=== PATIENT | male | born 1955 | race Caucasian/White ===

== ENCOUNTER → 2020-09-21 00:22 | Outpatient (CLI) | payer BC, SELFPAY ==
[2020-09-21 19:26] LABS: SARS-CoV-2 RNA PCR Negative
== END ==
PROVIDERS: PCP Family Medicine; Visit Provider Internal Medicine Gastroenterology
DX: Z01.812 Encounter for preprocedural laboratory examination (principal); Z20.822 Contact with and (suspected) exposure to COVID-19
CPT/HCPCS: C9803; U0003; U0005

== ENCOUNTER 2020-09-25 01:23 | Day surgery (SDC) | payer BC, SELFPAY ==
[2020-09-06 13:57] VITALS: BMI 25.6
[2020-09-25 06:40] VITALS: BP 109/75; PULSE 61; RESP 16; TEMP 35.9; O2SAT 99; BMI 26.0
[2020-09-25] MEDS: LACTATED RINGERS 1,000 ML 150 ML IV CONT (06:48)
--- NOTE | 2020-09-25 07:26 | WPDGICN ---
Assessment and Plan Assessment and plan (1) History of colon polyps: Code(s): Z86.010 - Personal history of colonic polyps Status: Acute Assessment and Plan: Patient has a history of colon polyps in 2008. Plan is for surveillance colonoscopy at this time. Further recommendations will be given after endoscopy. GI Consult Note Consult date/time: 09/25/20 07:26 HPI: Memo Garcia is a 64 year old male Presents for screening colonoscopy. Patient has a history of adenomatous colon polyps removed from the colon in 2008. Most recent exam in 2012 was unremarkable. Patient reports that current weight appetite bowel movements are normal. He denies abdominal pain. He has had no bleeding. Family history is noncontributory. Patient desires neoplasia screening follow-up this time. Review of Systems Review of Systems: All systems reviewed & are unremarkable except as noted in HPI and below PMFSH Past Medical History Medical History (Updated 09/25/20 @ 07:27 by Ildefonso Denny MD) GERD (gastroesophageal reflux disease) Hypertension Social History Social History Smokeless tobacco user: chewing tobacco Drinks per week: 7 Alcohol use details: BEER Substance use: current Substance use type: marijuana Living arrangements: with family Gender identity (if verbalized by the patient): Male Spiritual care concerns: No Meds Home Medications and Allergies Home Medications Medication Instructions Recorded Confirmed Type citalopram 20 mg PO DAILY 09/06/20 09/25/20 History lisinopril 20 mg PO DAILY 09/06/20 09/25/20 History omeprazole 20 mg PO DAILY 09/06/20 09/25/20 History Allergies Allergy/AdvReac Type Severity Reaction Status Date / Time No Known Allergies Allergy Verified 09/25/20 06:38 Vital Signs Vital Signs - 24 hr 09/25/20 06:40 Temperature 96.7 F L Pulse Rate 61 Respiratory Rate 16 Blood Pressure 109/75 Pulse Oximetry 99 Exam Narrative: Exam Narrative: Physical exam reveals patient be alert. Vital signs stable. HEENT exam is unremarkable. Patient is anicteric. Lungs are clear to auscultation and percussion. Heart is without murmur or extra sounds. Abdominal exam bowel sounds are present soft nontender with no organomegaly. Digital external rectal exam is normal.
--- NOTE | 2020-09-25 07:29 | WPDANESEPPF ---
Anes - Initial Pre Proc Eval Procedure: Operation Date: 09/25/20 08:00 Proposed Procedures p Colonoscopy - Ildefonso Denny MD Date/Time: 09/25/20 07:29 Surgeon: Ildefonso Denny MD Pre Op Diagnosis: neoplasm screening, personal hx colon polyps Patient Data Age: 64 Gender: M Height: 1.78 m Weight: 82.3 kg Last Vital Signs Temp 96.7 F L 09/25/20 06:40 Pulse 61 09/25/20 06:40 Resp 16 09/25/20 06:40 BP 109/75 09/25/20 06:40 Pulse Ox 99 09/25/20 06:40 Allergies Allergy/AdvReac Type Severity Reaction Status Date / Time No Known Allergies Allergy Verified 09/25/20 06:38 Home Medications Medication Instructions Recorded Confirmed Type citalopram 20 mg PO DAILY 09/06/20 09/25/20 History lisinopril 20 mg PO DAILY 09/06/20 09/25/20 History omeprazole 20 mg PO DAILY 09/06/20 09/25/20 History Patient hx anesthesia problems: none Family hx anesthesia problems: none [facility] Past Medical History Medical History (Updated 09/25/20 @ 07:27 by Ildefonso Denny MD) GERD (gastroesophageal reflux disease) Hypertension Social History Social History Smokeless tobacco user: chewing tobacco Drinks per week: 7 Alcohol use details: BEER Substance use: current Substance use type: marijuana Living arrangements: with family Gender identity (if verbalized by the patient): Male Spiritual care concerns: No Anes - Eval Final PreProcedure Day of Procedure 09/25/20 07:29 Patient weight: normal Heart: regular rate and rhythm Lungs: clear to auscultation Airway: Mallampati scale class II Neurological: alert and oriented Last oral intake: >/= 8 hours ASA classification: III Emergent: no Anesthetic plan: proceed Anesthesia type and monitoring: general GIVS and standard monitoring Informed Consent: The patient's anesthetic plan and its attendant risks and benefits were discussed with the patient/family/POA. Questions were solicited and answers provided to the satisfaction of the patient/family/POA.
[2020-09-25 08:13] VITALS: BP 120/73; PULSE 51; RESP 18; O2SAT 96
[2020-09-25 08:23] VITALS: BP 134/84; PULSE 60; RESP 14; O2SAT 100
[2020-09-25 08:31] VITALS: BP 133/80; PULSE 50; RESP 15; O2SAT 99
== END 2020-09-25 08:55 | disposition home or self-care (01) ==
PROVIDERS: PCP Family Medicine; Visit Provider Internal Medicine Gastroenterology
PROC: 0DJD8ZZ Inspection of Lower Intestinal Tract, Via Natural or Artificial Opening Endoscopic (ICD-10-PCS; CPT 45378; principal; 2020-09-25 08:00)
DX: Z12.11 Encounter for screening for malignant neoplasm of colon (principal); D12.5 Benign neoplasm of sigmoid colon; K63.5 Polyp of colon; I10 Essential (primary) hypertension; K21.9 Gastro-esophageal reflux disease without esophagitis; F17.220 Nicotine dependence, chewing tobacco, uncomplicated; F12.90 Cannabis use, unspecified, uncomplicated
CPT/HCPCS: 45385; 88305; J2704; J7120

== ENCOUNTER 2022-08-26 08:45 | Outpatient (CLI) | payer MEDICARE, SELFPAY ==
--- NOTE | 2022-09-11 09:12 | WPDHOMESLEEP ---
Sleep Study - Home Unattended Date of Study: 08/26/22 Ordering Provider: Primitivo Guillen Interpreting Provider: Emily Mcdonald MD Home Sleep Study Type: Watch PAT Height: 1.78 m Weight: 81.647 kg Body Mass Index: 25.8 Neck Circumference (inches): 15 Tranquillity: 14 Reason for Sleep Study Memo Garcia is a 66 year-old man with witnessed apneas. This has worsened in the lst year. He has known about this problems for at least 5 years. Sleep History Memo Garcia is a 66-year-old man with history of hypertension who presents for a home sleep test due to snoring and witnessed apneas, worse over the last 5 years. He frequently awakens from sleep short of breath. He rarely at night with heartburn, belching or cough.??He always snores, and it is always loud enough that others complain. He occasionally has trouble sleeping when he has a cold. He frequently wakes up gasping for breath during the night. He constantly has breathing problems at night. He never sweats excessively at night. He never notices his heart pounding or beating irregularly during the night. He frequently falls asleep during the day. He never falls asleep involuntarily and never falls asleep while driving. He frequently has daytime difficulties at his job due to excessive sleepiness. He never experiences loss of muscle tone with strong emotion. He never feels paralyzed on waking or falling asleep. He occasionally experiences vivid dreams upon waking or falling asleep. He never feel afraid of going to sleep. He occasionally has nightmares. He occasionally recalls his dreams. He occasionally has thoughts racing through his mind. He never feels sad or depressed. He occasionally feels anxiety or worry about things. He never notices parts of his body jerk. He never kicks during the night. He never feels crawling or aching feelings in his legs. He never feels leg pain at night. He occasionally grinds his teeth and never has morning jaw pain. He never feels bothered by pain during the day and is never awakened by pain during the night. He occasionally wakes up feeling stiff, sore, and achy in the morning, never with pain in his neck, spine, or joints. Normal bedtime is around 10:00 p.m. to 11:00 p.m. usually falling asleep quickly. He gets a different amount of sleep from night to night. His wake up time is between 6:30 a.m. and 7:00 a.m.. He wakes once or twice at night to go to the bathroom, and he is able to return to sleep quickly. he takes naps in the afternoon or evening. A short nap lasting 10 or 15 minutes is not refreshing. He is usually drowsy for 3 hours or longer after waking Habits:?Tobacco: former smoker Caffeine: 2 cups of coffee/day. Alcohol:on weekends Recreational substances: marijuana mostly on weekends PMFSH Past Medical History Medical History GERD (gastroesophageal reflux disease) Hypertension Social History Social History Smokeless tobacco user: chewing tobacco Drinks per week: 7 Alcohol use details: BEER Substance use: current Substance use type: marijuana Living arrangements: with family Gender identity (if verbalized by the patient): Male Spiritual care concerns: No Medications Home Medications Medication Instructions Recorded Confirmed Type citalopram 20 mg tablet 20 mg PO DAILY 09/06/20 09/25/20 History lisinopril 20 mg tablet 20 mg PO DAILY 09/06/20 09/25/20 History omeprazole 20 mg capsule,delayed 20 mg PO DAILY 09/06/20 09/25/20 History release Sleep Procedure The sleep study was completed using picoChip[employer] a technically adequate device with seven channels: peripheral arterial tone, actigraphy, body position, snore, respiratory movement, pulse oximetry, sleep staging, and heart rate. Prior to using the device, the patient received verbal and written instructions for its application and was provided
[2022-09-11 09:52] VITALS: BMI 25.8
== END 2022-08-27 13:35 | disposition home or self-care (01) ==
LOC: ANHCSM 08:46
DX: G47.33 Obstructive sleep apnea (adult) (pediatric) (principal)
CPT/HCPCS: 95800